=== PATIENT | female | born 1950 | race Caucasian/White ===

== ENCOUNTER 2017-06-22 11:23 | Observation (INO) | payer OTHER ==
[~2017-06-22] VITALS: Ht 165.1 cm; Wt 107.0 kg
[~2017-06-22 11:23] MED LIST: ASPIR-LOW81 MG PO; ATENOLOL100 MG PO; DIOVAN HCT 81 TABLET PO; GLIPIZIDE10 MG PO; GLUCOPHAGE1000 MG PO; HYDRALAZINE HCL25 M1 PO; JANUVIA100 MG PO; LIPITOR80 MG PO; METFORMIN HCL500 MG PO; MULTIVITAMIN1 EAC1 PO; PLAVIX75 MG PO; SERTRALINE HCL100 MG PO; ZETIA10 MG PO
[2017-06-22 12:08] LABS: EOSINOPHIL (%) 1.1 % (0-5); EOSINOPHIL COUNT 0.1 K/uL (0-0.3); HEMATOCRIT 35.8 % (36.0-46.0); IMMATURE GRANULOCYTE (%) 0.5 % (0.0-0.7); IMMATURE GRANULOCYTE COUNT 0.1 K/uL; INSTRUMENT ABS NEUTROPHIL CT 6.8 K/uL; MCH 24.7 PG (29.0-34.0); MCHC 31.6 G/DL (30.0-36.0); MCV 78.2 FL (83-99); MEAN PLAT.VOLUME 9.8 uM^3 (9.5-12.4); MONOCYTE (%) 7.1 % (3-12); MONOCYTE COUNT 0.7 K/uL (0-0.8); NEUTROPHIL (%) 70.2 % (45-76); NEUTROPHIL COUNT 6.8 K/uL (1.8-6.4); PLATELET COUNT 189 K/uL (156-360); RBC DIS.WIDTH-CV 15.8 % (11.8-14.6); RBC DIS.WIDTH-SD 45.1 % (39-53); RED BLOOD COUNT 4.58 M/uL (3.80-5.20); WHITE BLOOD COUNT 9.7 K/uL (4.1-10.2)
[2017-06-22 12:14] LABS: PROTHROMBIN TIME 11.8 SEC (10.2-12.9)
[2017-06-22 12:16] LABS: PTT 30.4 SEC (25-37)
[2017-06-22 12:23] LABS: CHLORIDE 99 mEq/L (99-109); POTASSIUM 4.1 mEq/L (3.7-5.4); SODIUM 139 mEq/L (136-147)
[2017-06-22 12:25] LABS: GLUCOSE 236 mg/dL (70-99)
[2017-06-22 12:26] LABS: ANION GAP 14 MEQ/L (2-14)
[2017-06-22 12:29] LABS: GFR ESTIMATE (CALCULATED) > 59 mL/min/
[2017-06-22 12:30] LABS: UREA NITROGEN (BUN) 17 mg/dL (9-23)
[2017-06-22 12:32] LABS: TROP-I INTERPRETATION NEGATIVE; TROPONIN-I < 0.01 ng/mL (0.0-0.30)
[2017-06-22] MEDS ORDERED: LEVEMIR FL100 UNIT/1 SC (13:37)
[2017-06-22] MEDS ORDERED: LEVOTHYROXINE175 MCG PO (13:38)
[2017-06-22] MEDS ORDERED: DOCUSATE SODIU100 MG PO (13:38)
[2017-06-22] MEDS ORDERED: NITROSTAT0.4 MG SL (13:38)
[2017-06-22] MEDS ORDERED: CALCIUM 600 +1 EAC4 PO (13:39)
[2017-06-22] MEDS ORDERED: KRILL OIL 1,001 EACH PO (13:39)
[2017-06-22] MEDS ORDERED: BUSPAR15 MG PO (13:39)
[2017-06-22 16:57] VITALS: BP 151/67
[2017-06-22 18:37] LABS: TROP-I INTERPRETATION NEGATIVE; TROPONIN-I < 0.01 ng/mL (0.0-0.30)
[2017-06-22 19:37] VITALS: BP 118/60
[2017-06-22 22:40] LABS: POINT-OF-CARE METER ID UU14162513
[2017-06-22 23:41] VITALS: BP 149/70
[2017-06-23 01:40] LABS: TROP-I INTERPRETATION NEGATIVE; TROPONIN-I < 0.01 ng/mL (0.0-0.30)
[2017-06-23 03:12] VITALS: BP 138/65
[2017-06-23 08:09] VITALS: BP 160/70
[2017-06-23 09:07] LABS: POINT-OF-CARE METER ID UU13113700
== END 2017-06-23 11:08 | disposition home or self-care (01) ==
LOC: EME 11:23 → EDOF 12:59 → 5WEST 12:59 → ENRESERV 13:02 → 5WEST 16:50
PROVIDERS: Emergency Medicine; Internal Medicine; Nurse Practitioner Adult Health
DX: R07.9 Chest pain, unspecified (principal); I25.10 Atherosclerotic heart disease of native coronary artery without angina pectoris; Z95.5 Presence of coronary angioplasty implant and graft; Z95.1 Presence of aortocoronary bypass graft; I78.0 Hereditary hemorrhagic telangiectasia; E11.9 Type 2 diabetes mellitus without complications; I10 Essential (primary) hypertension; I45.10 Unspecified right bundle-branch block; I35.0 Nonrheumatic aortic (valve) stenosis; Z82.49 Family history of ischemic heart disease and other diseases of the circulatory system; Z83.3 Family history of diabetes mellitus; Z79.4 Long term (current) use of insulin; Z66 Do not resuscitate
CPT/HCPCS: 71010; 80048; 82948; 84484; 85025; 85610; 85730; 93005; 99281; 99285; G0378; J1650; S0028